=== PATIENT | female | born 1950 | race Two or more races ===

== ENCOUNTER 2020-04-17 10:19 | Emergency (ER) | payer MEDICARE, OTHER ==
[~2020-04-17] VITALS: Ht 152.4 cm; Wt 53.5 kg
[~2020-04-17 10:19] MED LIST: METFORMIN HCL850 MG PO; TAMOXIFEN CITRA10 MG PO; XANAX0.5 MG PO
--- NOTE | 2020-04-17 11:06 | Emergency Department Note ---
History of Present Illnes History of Present Illness Chief Complaint: General Medicine Complaints History of Present Illness This is a 69 year old Other female Chief Complaint Comment Patient in from home with complaints of blood in stool and in underwear that started last week. Patient reports a history of hemorrhoids and states that it li when she has a bowel movement. Reports that she has seen some clots in the toilet and complaints of pain to her RLQ that radiates to her back. Historian: Patient Arrival Mode: Car Electrical Logging Operator Required: No Onset (how long ago): week(s) (1) Location: Rectal Quality: bleeding Radiation: Reports non-radiation Severity: mild Onset quality: sudden Duration (how long): week(s) (1) Timing of current episode: constant Progression: unchanged Chronicity: new Context: Denies recent illness, Denies recent surgery Relieving factors: none Exacerbating factors: none Associated symptoms: Reports denies other symptoms Treatments prior to arrival: none Past Medical/Family History Physician Review I have reviewed the patient's past medical and family history. Any updates have been documented here. Past Medical History Recent Fever: No Clinical Suspicion of Infectio: No New/Unexplained Change in Ment: No Past Medical History: Hypertension, Diabetes, Anxiety, Depression, Osteoarth ritis Past Surgical History: Knee Replacement Review of Systems Review of Systems Constitutional: Reports no symptoms EENTM: Reports no symptoms Cardiovascular: Reports no symptoms Respiratory: Reports no symptoms Gastrointestinal: Reports as per HPI, Reports abdominal pain; Denies constipation, Denies diarrhea Genitourinary: Reports no symptoms Musculoskeletal: Reports no symptoms Integumentary: Reports no symptoms Neurological: Reports no symptoms Psychological: Reports no symptoms Endocrine: Reports no symptoms Hematological/Lymphatic: Reports no symptoms Physical Exam Related Data Allergies: Coded Allergies: Acetaminophen (Verified Allergy, Mild, DEPRESSED, 03/10/11) hydrocodone bit (Verified Allergy, Mild, DEPRESSED, 03/10/11) Triage Vital Signs Vital Signs Date Time Temp Pulse Resp B/P (MAP) Pulse Ox O2 Delivery O2 Flow Rate FiO2 04/17/20 10:47 98.1 89 16 125/83 99 Room Air Vital signs reviewed: Yes Physical Exam CONSTITUTIONAL Constitutional: Present well-developed, Present well-nourished HENT HENT: Present normocephalic, Present atraumatic, Present oropharynx clear/moist, Present nose normal HENT L/R: Present left ext ear normal, Present right ext ear normal EYES Eyes: Reports PERRL, Reports conjunctivae normal NECK Neck: Present ROM normal PULMONARY Pulmonary: Present effort normal, Present breath sounds normal CARDIOVASCULAR Cardiovascular: Present regular rhythm, Present heart sounds normal, Present capillary refill normal, Present normal rate GASTROINTESTINAL Abdominal: Present soft, Present nontender, Present bowel sounds normal GENITOURINARY Genitourinary: Present exam deferred SKIN Skin: Present warm, Present dry MUSCULOSKELETAL Musculoskeletal: Present ROM normal NEUROLOGICAL Neurological: Present alert, Present oriented x 3, Present no gross motor or sensory deficits PSYCHOLOGICAL Psychological: Present mood/affect normal, Present judgement normal Assessment & Plan Medical Decision Making MDM 69-year-old female with past medical history significant for diabetes it's em ergency department for rectal bleeding. Initially uses toilet paper and now has some in the toilet bowl. Recent colonoscopy 6 years ago had no significant findings per patient. Initial differential includes diverticulitis versus angiodysplasia versus diverticulosis versus hemorrhoids among others. Workup shows no sig findings. Doubt emergent process at this time. I discussed results patient as well as expected disease time course and management. They will follow up with their primary care provider or return to the emergency department for new or worsening symptoms. Patient's appropriate for discharge. Referral for Dr. Santa mcdonald. Dx favors internal hemorrhoids at this time but will need GI f/u. Assessment & Plan Final Impression: (1) Rectal bleeding Depart Disposition: HOME, SELF-CARE Last Vital Signs Date Time Temp Pulse Resp B/P (MAP) Pulse Ox O2 Delivery O2 Flow Rate FiO2 04/17/20 10:47 98.1 89 16 125/83 99 Room Air Home Meds Reported Medications Metformin Hcl (METFORMIN HCL) 850 Mg Tablet, 850 MG PO DAILY, #30 TAB 03/21/14 Alprazolam (XANAX) 0.5 Mg Tablet, 0.5 MG PO PRN 03/21/14 Tamoxifen Citrate (TAMOXIFEN CITRATE) 10 Mg Tablet, 20 MG PO DAILY, #30 TAB 03/21/14 MARIEL GUY MD Apr 17, 2020 11:06
[2020-04-17 11:09] LABS: BASOPHILS # (AUTO) 0.1 (0.0-0.1); EOSINOPHILS # (AUTO) 0.1 (0.0-0.4); EOSINOPHILS % 1.6 % (0.0-6.0); HEMATOCRIT 33.7 % (34.2-44.1); HEMOGLOBIN 10.4 g/dL (12.0-16.0); LYMPHOCYTES # (AUTO) 2.2 (1.0-3.2); LYMPHOCYTES % 45.3 % (18.0-39.1); MEAN CORPUSCULAR HEMOGLOBIN 27.2 pg (28-32); MEAN CORPUSCULAR HGB CONC 30.9 g/dL (31-35); MEAN CORPUSCULAR VOLUME 88.2 fL (81-99); MONOCYTES # (AUTO) 0.3 (0.2-0.8); MONOCYTES % 5.5 % (4.4-11.3); NEUTROPHILS # (AUTO) 2.3 (2.1-6.9); NEUTROPHILS % 46.4 % (38.7-80.0); PLATELET COUNT 251 x10e3/uL (140-360); RED BLOOD COUNT 3.82 x10e6/uL (3.6-5.1)
--- OUTSIDE RECORDS SUMMARY | 2020-04-17 11:23 | XMS REPORT | Continuity of Care Document ---
Author Author [facility] t Organization [facility] Address 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 Diagnosis Active 2015-11-03 00:01:00 2015-11-06 13:07:[address] [facility] Allergies, Adverse Reactions, Alerts Allergy Name Allergy Type Status Severity Reaction(s) Onset Date Inacti ve Date Treating Clinician Comments Source codeine DA Active SV 2017-03-17 00:00:00 [facility] clarithromycin DA Active MO 2017-03-17 00:00:00 [facility] Social History Social Habit Start Date Stop Date Quantity Comments Source Social History 2015-11-07 04:59:00 2015-11-07 04:59:[address] [facility] Medications This patient has no known medications. Procedures This patient has no known procedures. Encounters Start Date/Time End Date/Time Encounter Type Admission Type [facility] Care Department Encounter ID Source 2015-11-06 12:57:00 2015-11-06 23:59:00 Outpatient Taj Zhou [id number] Results This patient has no known results.
--- OUTSIDE RECORDS SUMMARY | 2020-04-17 11:23 | XMS REPORT | Continuity of Care Document ---
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 Comparison is made to exams dated: 11/18/2014 mammogram, 11/12/2013 mammogram, 11/04/2011 mammogram and 04/21/2011 mammogram - [facility]. Color flow ultrasound of both breasts was performed. All 4 quadrants, the retroareolar area of both breasts and both axilla were imaged. RIGHT BREAST: No solid or cystic mass is identified within the right breast. No abnormalities were seen sonographically in the right axilla. LEFT BREAST: No solid or cystic mass is identified within the left breast. No abnormalities were seen sonographically in the left axilla. IMPRESSION: NEGATIVE There is no sonographic evidence of malignancy or signficant interval change. A 1 year screening mammogram and an ultrasound is recommended. Nitish Buitrago M.D. bf/:11/06/2015 15:17:07 Hydroelectric Plant Technician: Anitra FRANKLIN(Trevor)(Santa), [facility] This exam was dictated and interpreted by [id number] for [facility]. 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 Current study was evaluated with a Computer Aided Detection (CAD) system. Comparison is made to exams dated: 11/18/2014 mammogram, 11/12/2013 mammogram, 11/04/2011 mammogram and 04/21/2011 mammogram - [facility]. There are scattered fibroglandular densities in both breasts. There are benign calcifications in the right breast. There also are post operative findings in the left breast. No significant masses, calcifications, or other findings are seen in either breast. IMPRESSION: BENIGN There is no mammographic evidence of malignancy. A 1 year screening mammogram and an ultrasound is recommended. Nitish Buitrago M.D. bf/:11/06/2015 15:17:07 Hydroelectric Plant Technician: Anitra FRANKLIN(Trevor)(Santa), [facility] This exam was dictated and interpreted by [id number] for [facility]. letter sent: Normal exam Mammogram BI-RADS: 2 Benign 11/06/2015 [facility] Consultation Notes No Data Provided for This Section Discharge Summaries No Data Provided for This Section History and Physicals No Data Provided for This Section Vital Signs No Data Provided for This Section Encounters Location Location Details Encounter Type Encounter Number Reason For Visit Attending Provider ADM Date DC Date Status Source [facility] [id number] Mohamed Winnie 11/06/2015 11/07/2015 [facility] Procedures No Data Provided for This Section Assessment and Plan No Data Provided for This Section Plan of Care No Data Provided for This Section Social History Social History Date Source No data available for this section 11/07/2015 [facility] Family History No Data Provided for This Section Advance Directives No Data Provided for This Section Functional Status No Data Provided for This Section
[2020-04-17 11:25] LABS: INR 0.9; PROTHROMBIN TIME 12.6 seconds (11.9-14.5)
[2020-04-17 11:35] LABS: ALANINE AMINOTRANSFERASE 14 IU/L (0-55); ALBUMIN 3.7 g/dL (3.5-5.0); ALBUMIN/GLOBULIN RATIO 1.2 (0.8-2.0); ALKALINE PHOSPHATASE 86 IU/L (40-150); ANION GAP 13.9 mmol/L (8-16); BLOOD UREA NITROGEN 13 mg/dL (7-26); BUN/CREATININE RATIO 17 (6-25); CALCIUM 8.5 mg/dL (8.4-10.2); CARBON DIOXIDE 25 mmol/L (22-29); CHLORIDE 110 mmol/L (98-107); CREATININE, SERUM 0.76 mg/dL (0.57-1.11); EST GLOMERULAR FILTRATION RATE > 60 ML/MIN (60-); GLUCOSE 145 mg/dL (74-118); LIPASE 35 U/L (8-78); POTASSIUM 3.9 mmol/L (3.5-5.1); SODIUM 145 mmol/L (136-145)
--- NOTE | 2020-04-17 12:55 | Diagnostic Imaging Report ---
EXAM: CTA Abdomen and Pelvis WITHOUT and WITH intravenous contrast - GI bleed protocol INDICATION: GI bleeding COMPARISON: None. TECHNIQUE: Abdomen and pelvis were scanned utilizing a multidetector helical scanner from the lung base to the pubic symphysis before and after administration of IV contrast. Coronal and sagittal reformations were obtained. GI bleed protocol was used. Scan was performed prior to contrast administration and during portal venous phase. IV CONTRAST: 100 mL of Isovue 370 ORAL CONTRAST: Water COMPLICATIONS: None RADIATION DOSE: Total DLP: 923 mGy*cm Dose modulation, iterative reconstruction, and/or weight based adjustment of the mA/kV was utilized to reduce the radiation dose to as low as reasonably achievable. FINDINGS: LOWER THORAX: Normal. HEPATOBILIARY: No focal hepatic lesions. No biliary ductal dilatation. The gallbladder appears unremarkable. SPLEEN: No splenomegaly. PANCREAS: No focal masses or ductal dilatation. ADRENALS: No adrenal nodules. KIDNEYS/URETERS: No hydronephrosis, stones, or solid mass lesions. PELVIC ORGANS/BLADDER: Unremarkable. PERITONEUM / RETROPERITONEUM: No free air or fluid. LYMPH NODES: No lymphadenopathy. VESSELS: No aortic dissection or aneurysm. The mesenteric vessels are widely patent. No active extravasation of contrast into the bowel lumen. Single left renal artery. Main and accessory right renal arteries. Mild scattered atherosclerotic calcifications of the nonaneurysmal abdominal aorta and major branches. GI TRACT: No abnormal bowel thickening. No bowel obstruction. Normal appendix. BONES AND SOFT TISSUES: Unremarkable. IMPRESSION: No CTA evidence of active arterial gastrointestinal bleeding. Signed by: Haim Gonzalez MD on 04/17/2020 12:51 PM
[2020-04-17 13:05] VITALS: BP 117/57
[2020-04-17] MEDS ORDERED: IOPAMIDOL 370 MG/ML 200 ML INFUS..BTL INJ ONE (16:43)
[2020-04-17] MEDS ORDERED: SODIUM CHLORIDE 0.9% INJ 100 ML MINIBAG PLUS ONE (16:43)
== END 2020-04-17 13:13 | disposition home or self-care (01) ==
LOC: ER 10:50
DX: K62.5 Hemorrhage of anus and rectum (principal); E11.9 Type 2 diabetes mellitus without complications; I10 Essential (primary) hypertension; F41.8 Other specified anxiety disorders; M17.10 Unilateral primary osteoarthritis, unspecified knee
CPT/HCPCS: 36415; 74174; 80053; 83690; 85025; 85610; 86850; 86900; 99284; Q9967

== ENCOUNTER → 2020-05-20 | Day surgery (SDC) | payer MEDICARE, OTHER ==
[2020-05-18 11:32] LABS: BASOPHILS # (AUTO) 0.1 (0.0-0.1); EOSINOPHILS # (AUTO) 0.1 (0.0-0.4); EOSINOPHILS % 1.2 % (0.0-6.0); LYMPHOCYTES # (AUTO) 2.1 (1.0-3.2); LYMPHOCYTES % 35.2 % (18.0-39.1); MEAN CORPUSCULAR HEMOGLOBIN 24.9 pg (28-32); MEAN CORPUSCULAR HGB CONC 30.6 g/dL (31-35); MEAN CORPUSCULAR VOLUME 81.4 fL (81-99); MONOCYTES # (AUTO) 0.3 (0.2-0.8); MONOCYTES % 5.6 % (4.4-11.3); NEUTROPHILS # (AUTO) 3.3 (2.1-6.9); NEUTROPHILS % 56.8 % (38.7-80.0); PLATELET COUNT 306 x10e3/uL (140-360); RED BLOOD COUNT 4.42 x10e6/uL (3.6-5.1)
[~2020-05-20] MED LIST changes: +DOXYCYCLINE HY100 MG PO; +FENTANYL CITRATE/PF 100MCG/2 ML INJ ONE; +HYOSCYAMINE 0.125 MG TAB ONE; +HYOSCYAMINE SULFATE 0.5 MG/ML INJ ONE; +LIDOCAINE HCL 2% LOCAL INJ 5 ML SDV VIAL INJ ONE; +MIDAZOLAM HCL 2 MG/2 ML VIAL ONE; +PIOGLITAZONE HC45 MG PO; +PROPOFOL IV EMULSION 10 MG/ML 20 ML VIAL ONE; +VITAMIN D350 MCG PO
[2020-05-20 16:55] VITALS: BP 129/82
[2020-05-20 17:24] LABS: % IRON SATURATION 8 % (15-50); IRON 39 ug/dL (50-170); TOTAL IRON BINDING CAPACITY 490 ug/dL (261-478); TRANSFERRIN 350 mg/dL (180-382)
== END | disposition home or self-care (01) ==
LOC: OR 13:25
PROVIDERS: ATTEND Internal Medicine Gastroenterology
DX: K22.2 Esophageal obstruction (principal); Z86.010 Personal history of colon polyps; K31.7 Polyp of stomach and duodenum; K29.70 Gastritis, unspecified, without bleeding; K20.90 Esophagitis, unspecified without bleeding; K57.30 Diverticulosis of large intestine without perforation or abscess without bleeding; K56.609 Unspecified intestinal obstruction, unspecified as to partial versus complete obstruction; K62.5 Hemorrhage of anus and rectum; K64.8 Other hemorrhoids; I10 Essential (primary) hypertension; E11.9 Type 2 diabetes mellitus without complications; Z88.6 Allergy status to analgesic agent; Z01.810 Encounter for preprocedural cardiovascular examination; Z01.812 Encounter for preprocedural laboratory examination; Z20.828 Contact with and (suspected) exposure to other viral communicable diseases; Z79.84 Long term (current) use of oral hypoglycemic drugs; Z85.3 Personal history of malignant neoplasm of breast
CPT/HCPCS: 36415 ×2; 43239; 43450; 45378; 82607; 82746; 82948; 83540; 84466; 85025; 88305; 88312; 93005; J1980; J2001; J2704; U0002

== ENCOUNTER 2024-02-06 20:14 | Emergency (ER) | payer MEDICARE, OTHER ==
[~2024-02-06] VITALS: Ht 152.4 cm; Wt 53.5 kg
[~2024-02-06 20:14] MED LIST changes: -FENTANYL CITRATE/PF 100MCG/2 ML INJ ONE; +GLIPIZIDE5 MG PO; -HYOSCYAMINE 0.125 MG TAB ONE; -HYOSCYAMINE SULFATE 0.5 MG/ML INJ ONE; +IRO-PLEX LIQUI120 ML PO; -LIDOCAINE HCL 2% LOCAL INJ 5 ML SDV VIAL INJ ONE; -MIDAZOLAM HCL 2 MG/2 ML VIAL ONE; +ONDANSETRON ODT4 MG PO; -PROPOFOL IV EMULSION 10 MG/ML 20 ML VIAL ONE; +PROTONIX20 MG PO; +SUCRALFATE1 GM PO; +VITAMIN D3 COM1 EACH PO
[2024-02-06 21:17] VITALS: PULSE 63; RESP 18; TEMP 98.3; O2SAT 98
[2024-02-06] MEDS ORDERED: CEPHALEXIN500 MG PO (21:47)
[2024-02-06] MEDS ORDERED: PYRIDIUM100 MG PO (21:49)
== END 2024-02-06 22:05 | disposition home or self-care (01) ==
LOC: ER 20:18
DX: R33.9 Retention of urine, unspecified (principal); I10 Essential (primary) hypertension; E11.9 Type 2 diabetes mellitus without complications; F41.9 Anxiety disorder, unspecified; F32.A Depression, unspecified; M19.09 Primary osteoarthritis, other specified site
CPT/HCPCS: 51700; 87086; 99283

== ENCOUNTER 2024-02-07 09:52 | Emergency (ER) | payer MEDICARE, OTHER ==
[~2024-02-07] VITALS: Ht 149.9 cm; Wt 52.6 kg
[~2024-02-07 09:52] MED LIST changes: +CEPHALEXIN500 MG PO; +PYRIDIUM100 MG PO
[2024-02-07 10:02] VITALS: PULSE 74; RESP 18; TEMP 98.2; O2SAT 95
== END 2024-02-07 10:39 | disposition home or self-care (01) ==
LOC: ER 09:58
DX: Z46.6 Encounter for fitting and adjustment of urinary device (principal)
CPT/HCPCS: 99282

== ENCOUNTER → 2024-10-31 | Day surgery (SDC) | payer MEDICARE, OTHER ==
[2024-10-30 15:10] LABS: BASOPHILS % 0.4 % (0.0-1.0); EOSINOPHILS % 0.5 % (0.0-6.0); HEMATOCRIT 43.5 % (34.2-44.1); LYMPHOCYTES # (AUTO) 2.4 (1.0-3.2); LYMPHOCYTES % 31.5 % (18.0-39.1); MEAN CORPUSCULAR HEMOGLOBIN 28.4 pg (28-32); MEAN CORPUSCULAR HGB CONC 32.2 g/dL (31-35); MEAN CORPUSCULAR VOLUME 88.2 fL (81-99); MONOCYTES # (AUTO) 0.4 (0.2-0.8); MONOCYTES % 5.4 % (4.4-11.3); NEUTROPHILS # (AUTO) 4.6 (2.1-6.9); NEUTROPHILS % 62.1 % (38.7-80.0); PLATELET COUNT 213 x10e3/uL (140-360); RED BLOOD COUNT 4.93 x10e6/uL (3.6-5.1); RED CELL DISTRIBUTION WIDTH 14.3 % (11.7-14.4); WHITE BLOOD COUNT 7.47 x10e3/uL (4.8-10.8)
[~2024-10-31] MED LIST changes: +LEXAPRO20 MG PO; +LIDOCAINE HCL 2% LOCAL INJ 5 ML SDV VIAL INJ ONE; +METOCLOPRAMIDE HCL 10 MG/2ML VIAL ONE; +PROPOFOL IV EMULSION 10 MG/ML 20 ML VIAL ONE; +ROSUVASTATIN CA20 MG PO
[2024-10-31] MEDS: LACTATED RINGER'S 1,000 ML BAG IV ONE (13:00)
[2024-10-31 15:04] VITALS: TEMP 97
[2024-10-31 15:35] VITALS: BP 125/74; PULSE 76; RESP 16; O2SAT 96
== END | disposition home or self-care (01) ==
LOC: ENDO 12:28
PROVIDERS: ATTEND Internal Medicine Gastroenterology
DX: K22.2 Esophageal obstruction (principal); K44.9 Diaphragmatic hernia without obstruction or gangrene; K29.50 Unspecified chronic gastritis without bleeding; R13.19 Other dysphagia; E78.5 Hyperlipidemia, unspecified; I10 Essential (primary) hypertension; R05.8 Other specified cough; F41.9 Anxiety disorder, unspecified; R94.31 Abnormal electrocardiogram [ECG] [EKG]; E11.9 Type 2 diabetes mellitus without complications; Z79.84 Long term (current) use of oral hypoglycemic drugs; Z71.3 Dietary counseling and surveillance; Z68.23 Body mass index [BMI] 23.0-23.9, adult; Z01.810 Encounter for preprocedural cardiovascular examination; Z01.812 Encounter for preprocedural laboratory examination; Z79.899 Other long term (current) drug therapy; Z86.0100 Personal history of colon polyps, unspecified; Z85.3 Personal history of malignant neoplasm of breast; Z90.12 Acquired absence of left breast and nipple
CPT/HCPCS: 36415; 43239; 43450; 82948; 85025; 93005; J2003; J2470; J2765